=== PATIENT | male | born 1955 | race Hispanic/Latino ===

== ENCOUNTER 2024-11-24 13:48 | Emergency (ER) | payer MEDICARE, OTHER ==
[2024-11-24] MEDS ORDERED: Labetalol HCl 100 MG/20 ML VIAL ONE (14:23)
[2024-11-24 14:39] LABS: #Basophils 0.1 thou/uL (0.0-0.2); #Eosinophils 0.1 thou/uL (0.0-0.7); #Lymphocytes 2.1 thou/uL (1.20-3.40); #Monocytes 0.5 thou/uL (0.11-0.59); #Neutrophils 6.4 thou/uL (1.40-6.50); %Basophils 0.9 % (0.0-1.0); %Eosinophils 0.9 % (0.0-10.0); %Lymphocytes 22.5 % (21.0-51.0); %Monocytes 5.7 % (0.0-10.0); %Neutrophils 70.1 % (42.0-75.0); Hematocrit 46.2 % (42.0-52.0); Hemoglobin 15.8 g/dL (14.0-18.0); Mean Corpuscular HGB CONC 34.2 g/dL (32.0-36.0); Mean Corpuscular Hemoglobin 28.4 pg (27.0-31.0); Mean Corpuscular Volume 83.3 fl (78.0-98.0); Mean Platelet Volume 9.6 fL (7.4-10.4); Platelet Count 161 10x3/uL (130-400); RBC Distribution Width 11.5 % (11.5-14.5); Red Blood Cell (RBC) Count 5.55 mill/uL (4.70-6.10); White Blood Cell (WBC) Count 9.2 10x3/uL (4.8-10.8)
[2024-11-24 14:44] LABS: ALT (SGPT) 45 U/L (Less than 45); AST (SGOT) 31 U/L (11-34); Albumin 3.8 g/dL (3.1-4.5); Alkaline Phosphatase 119 U/L (40-110); Anion Gap 16 mmol/L (10-20); BUN (Urea Nitrogen) 15 mg/dL (8.4-25.7); Calc. Creatinine Clearance 0 mL/min (70-130); Calcium 8.8 mg/dL (7.8-10.44); Carbon Dioxide 25 mmol/L (23-31); Chloride 99 mmol/L (98-107); Estimated GFR 70; Globulin 3.3 g/dL (2.4-3.5); Glucose 316 mg/dL (80-115); Protein, Total 7.1 g/dL (5.8-8.1); Sodium 136 mmol/L (136-145); Troponin I 0.015 ng/mL (< 0.028)
[2024-11-24] MEDS ORDERED: Insulin Regular, Human 100 UNIT/ML 10 ML VIAL ONE (14:53)
[2024-11-24 15:09] LABS: Bilirubin Negative (Negative); Blood, Urine Negative (Negative); Clarity Clear (Clear); Glucose, Urine (Dipstick) 500 mg/dL (Negative); Ketone, Urine Trace mg/dL (Negative); Leukocyte Negative (Negative); Nitrite Negative (Negative); Protein, Urine (Dipstick) 30 mg/dL (Neg-Trace); Urobilinogen 0.2 mg/dL (Less than 2); pH, Urine 5.5 (5.0-9.0)
[2024-11-24 15:18] LABS: Bacteria/HPF 1+ HPF (None Seen); CAUTI Indications for Culture Dysuria,urgency,freq; RBC/HPF None Seen HPF (0-3); Squamous Epithelial None Seen HPF (0-3); WBC/HPF 0-3 HPF (0-3)
[2024-11-24 15:20] LABS: Urine Culture Reflex No No
== END 2024-11-24 16:37 | disposition home or self-care (01) ==
LOC: BURERS 13:48
DX: I10 Essential (primary) hypertension (principal); E11.65 Type 2 diabetes mellitus with hyperglycemia; Z79.84 Long term (current) use of oral hypoglycemic drugs; Z79.899 Other long term (current) drug therapy
CPT/HCPCS: 36416; 71046; 80053; 81001; 83880; 84484; 85025; 93005; 96361; 96374; 96375; 96376; J1815